=== PATIENT | female | born 1985 | race Caucasian/White ===

== ENCOUNTER 2024-04-19 19:35 | Emergency (ER) | payer SELFPAY ==
[2024-04-19 20:00] VITALS: BP 120/78; PULSE 78; RESP 16; TEMP 36.9; O2SAT 99; BMI 30.1
--- NOTE | 2024-04-19 20:13 | CTR_ITS ---
PROCEDURE INFORMATION: Exam: CT Maxillofacial Without Contrast Exam date and time: 04/19/2024 8:21 PM Age: 38 years old Clinical indication: Injury or trauma; Other: Ran over by dog; Blunt trauma (contusions or hematomas); Nose; Injury details: Run over by dog; Additional info: Nasal trauma, pain, discharge TECHNIQUE: Imaging protocol: Computed tomography of the face without contrast. Radiation optimization: All CT scans at this facility use at least one of these dose optimization techniques: automated exposure control; mA and/or kV adjustment per patient size (includes targeted exams where dose is matched to clinical indication); or iterative reconstruction. COMPARISON: No relevant prior studies available. RADIATION DOSE METRICS: Total DLP (mGy-cm): 629.78 FINDINGS: Paranasal sinuses: No air-fluid levels. Orbital cavities: Orbits are normal. Globes are unremarkable. Bones: There are minimally displaced bilateral nasal bone fractures and fracture of the tip of the nasal bone. No other acute fracture is seen. Soft tissues: There is soft tissue edema overlying the nasal region. Other findings: The patient is edentulous. CT/CT facial bones wo con* [id number] IMPRESSION: Acute minimally displaced bilateral nasal bone fractures.
[2024-04-19] MEDS: naproxen 500 mg Tablet PO (20:36)
--- NOTE | 2024-04-19 20:38 | ED_ITS ---
HPI - General Adult General: Chief complaint: General Medical Stated complaint: nose pain, trouble breathing throough nose Time Seen by Provider: 04/19/24 19:44 Source: patient Mode of arrival: ambulatory Limitations: no limitations History of Present Illness: Patient is a 38-year-old female who presents the emergency department complaining of nasal pain onset just prior to arrival. She states that she was head butted by her dog on accident, and is having trouble breathing out of her left naris and that there is deformity. States that she wants evaluated for nasal bone fractures. States that she has also had discharge of the left nare, no bleeding. Did not lose consciousness, no vomiting and no other neurological symptoms reported. Vitals within normal limits at this time. Patient is feliz trimble. complaint: Nasal trauma Onset (ago): minute(s) Location: face Associated symptoms: Deny chest pain, dyspnea, headache(s), nausea, rash, palpitations or vomiting Treatments prior to arrival: none Related Data Allergies Allergy/AdvReac Type Severity Reaction Status Date / Time cephalexin (From Keflex) Allergy Unknown Verified 04/19/24 20:04 Review of Systems General: Reports: 10 or more systems reviewed and unremarkable except in HPI and below Const: Denies: fever(s), chills or fatigue Eyes: Denies: change in vision ENMT: Reports: nasal discharge and sinus pain (Nasal pain/trauma/deformity); Denies: throat pain, ear or mastoid pain or epistaxis Card: Denies: chest pain, palpitations, swelling of feet/ankles or lightheadedness Resp: Denies: dyspnea, productive cough or wheezing GI: Denies: abdominal pain, nausea, vomiting, diarrhea or constipation : Denies: flank pain, difficulty voiding, dysuria or urinary frequency Musc: Denies: neck pain, back pain or joint pain Skin/Breast: Denies: rash Neuro: Denies: headache(s), numbness in extremities or weakness in extremities [facility] ED Female Reproductive History: Date of last menstrual period: 04/06/24 Physical Exam Const: COMMON NORMALS: no acute distress, patient oriented x3 and no limitations GENERAL APPEARANCE: cooperative, well developed and anxious ORIENTATION/CONSCIOUSNESS: Yes awake, Yes oriented to person, Yes oriented to place and Yes oriented to time HENMT: COMMON NORMALS: normocephalic, atraumatic and hearing grossly normal bilaterally HEAD & SCALP: normocephalic and atraumatic OTHER: Questionable leftward deviation of the nose. Easily reproducible tenderness to palpation to the nasal bone, no bruising or obvious swelling at this time. No septal hematoma. Mild amount of clear discharge in the left naris. Eye: COMMON NORMALS: Equal, round and reactive pupils present, EOMs intact bilaterally and conjunctivae normal CONJUNCTIVA: Yes conjunctivae normal PUPIL: Yes Equal, round and reactive pupils present Neck/C-Spine: COMMON NORMALS: full ROM, supple and no JVD Resp: COMMON NORMALS: normal respiratory effort, No retractions, No use of accessory muscles and clear to auscultation bilaterally AUSCULTATION: clear to auscultation bilaterally Cardio: COMMON NORMALS: no JVD, regular rate, regular rhythm, No clicks present (Cardio), No murmurs present (Cardio) and No rub (Cardio) RATE: regular rate RHYTHM: regular rhythm Extremity: COMMON NORMALS: normal to inspection, full ROM and capillary refill normal Neuro: COMMON NORMALS: patient oriented x3, moves all extremities, no focal motor deficits and no sensory deficits noted SENSORIUM/ORIENTATION: Yes oriented to person, Yes oriented to place and Yes oriented to time Skin: COMMON NORMALS: no rashes or lesions noted GENERAL SKIN EXAM: no rashes or lesions noted Course Vital Signs: Vital signs: Vital Signs Temperature 98.4 F 04/19/24 20:00 Pulse Rate 74 04/19/24 22:19 Respiratory Rate 16 04/19/24 22:19 Blood Pressure 136/95 04/19/24 22:19 Pulse Oximetry 98 04/19/24 22:19 Oxygen Delivery Me thod Room Air 04/19/24 22:19 [facility] - General Adult Medical Decision Making Patient was struck in the nose by her dog by accident. No septal hematoma, patent airway, questionable mild displacement of the left of her nose. Vitals within normal limits. CT showing minimally displaced nasal bone fractures, will refer to ENT and discussed conservative therapy at home with the patient. Discussed return precautions, patient verbalized understanding. Lab Data Radiology Impressions Face CT 04/19/24 20:13 IMPRESSION: Acute minimally displaced bilateral nasal bone fractures. All radiology interpretation(s) finalized by discharge Discharge Plan Discharge Patient Disposition: Home Clinical Impression: Fracture of nasal bones Qualifiers: Encounter type: initial encounter Fracture type: closed Qualified Code(s): S02.2XXA - Fracture of nasal bones, initial encounter for closed fracture Condition: Stable Discharge Orders: Discharge ED (Routine); Ordered 04/19/24 Ordered By: Luis Trinidad Patient Instructions: Nasal Fracture (ED) Activity Restrictions/Additional Instructions: Follow-up with ENT. Ice. Ibuprofen and Tylenol. Return with any new or worsening. Print Language: [place] Coding Level of Care Code ED [employer] Conversion Manager for Val Tompkins
[2024-04-19 22:19] VITALS: BP 136/95; PULSE 74; RESP 16; O2SAT 98
[2024-04-19 22:45] VITALS: BP 136/95; PULSE 68; RESP 16; O2SAT 99
--- NOTE | 2024-04-20 08:00 | DCPLANNER ---
ENT referral sent to Dr Carbajal [facility]
== END 2024-04-19 22:44 | disposition home or self-care (01) ==
PROVIDERS: Emergency Provider Physician Assistant
DX: S02.2XXA Fracture of nasal bones, initial encounter for closed fracture (principal); W54.1XXA Struck by dog, initial encounter
CPT/HCPCS: 70486; 99284